=== PATIENT | male | born 1960 | race Caucasian/White ===

== ENCOUNTER 2019-02-18 01:11 | Emergency (ER) | payer OTHER ==
[~2019-02-18] VITALS: Ht 160 cm; Wt 70.3 kg
[2019-02-18 01:25] VITALS: BP_SYST 154
--- NOTE | 2019-02-18 01:45 | NUR ---
Patient to [facility] for evaluation. Side rails up.
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
--- NOTE | 2019-02-18 01:58 | NUR ---
ER at bedside examining patient.
[2019-02-18] MEDS ORDERED: LISINOPRIL 10 MG TABLET (PRINIVIL) PO ONE (02:15)
[2019-02-18 02:50] VITALS: BP_SYST 137
--- NOTE | 2019-02-18 02:50 | NUR ---
Patient and Spring given written and verbal discharge instructions and verbalizes understanding. ER MD discussed with patient the results and treatment provided. Patient in stable condition. ID arm band removed. Patient educated on pain management and to follow up with PMD in 2-3 days. Pain Scale 0/10 Opportunity for questions provided and answered. Medication side effect fact sheet provided.
== END 2019-02-18 02:50 ==
LOC: SED 01:11
DX: S05.12XA Contusion of eyeball and orbital tissues, left eye, initial encounter (principal); I10 Essential (primary) hypertension; Y04.0XXA Assault by unarmed brawl or fight, initial encounter; Y93.89 Activity, other specified; Y92.89 Other specified places as the place of occurrence of the external cause; Y99.8 Other external cause status
CPT/HCPCS: 99283